=== PATIENT | female | born 1970 | race Caucasian/White ===

== ENCOUNTER 2018-08-07 18:29 | Emergency (ER) | payer BC ==
[~2018-08-07] VITALS: Ht 160 cm; Wt 75.3 kg
[2018-08-07 18:42] VITALS: BP_SYST 141
[2018-08-07] MEDS ORDERED: KETOROLAC TROMETHAMINE 60 MG/2 ML VIAL IM ONE (19:15)
[2018-08-07 19:46] LABS: BILIRUBIN,URINE NEGATIVE (NEGATIVE); CLARITY/URINE CLEAR (CLEAR); COLOR,URINE YELLOW (YELLOW); GLUCOSE,URINE NEGATIVE (NEGATIVE); KETONES,URINE NEGATIVE (NEGATIVE); LEUKOCYTE ESTERASE ,URINE NEGATIVE (NEGATIVE); NITRITE, URINE NEGATIVE (NEGATIVE); PROTEIN URINE NEGATIVE (NEGATIVE); UROBILINOGEN,URINE 0.2 (0.2-1.0)
[2018-08-07 19:47] LABS: BLOOD, URINE TRACE (NEGATIVE)
[2018-08-07 19:58] LABS: BACTERIA,URINE FEW /HPF (None Seen); RBC,URINE 0-3 /HPF (0-3); WBC,URINE 0-3 /HPF (0-3)
[2018-08-07 20:35] VITALS: BP_SYST 136
== END 2018-08-07 20:35 | disposition home or self-care (01) ==
LOC: SED 18:29
DX: M54.41 Lumbago with sciatica, right side (principal); R03.0 Elevated blood-pressure reading, without diagnosis of hypertension; Z90.710 Acquired absence of both cervix and uterus; Z88.0 Allergy status to penicillin
CPT/HCPCS: 81000; 81025; 96372; 99283; J1885

== ENCOUNTER 2020-01-21 07:50 | Emergency (ER) | payer BC ==
[~2020-01-21] VITALS: Ht 154.9 cm; Wt 77.1 kg
[2020-01-21 08:00] VITALS: BP_SYST 130
--- NOTE | 2020-01-21 08:09 | NUR ---
Patient to ER bed 4 to gown for evaluation. Side rails up. Report given to AREN Pierre.
--- NOTE | 2020-01-21 08:18 | NUR ---
ER Dr. MINER at bedside examining patient.
--- NOTE | 2020-01-21 08:20 | NUR ---
PT TO BED 4. ALERT AND ORIENTED. ABLE TO MAKE NEEDS KNOWN. NO ACUTE DISTRESS NOTED. VSS.
--- NOTE | 2020-01-21 08:29 | NUR ---
PT TO ULTRASOUND.
[2020-01-21] MEDS ORDERED: MAG HYDROX/AL HYDROX/SIMETH 30 ML, DICYCLOMINE HCL 20 MG, LIDOCAINE VISCOUS 2% 15ML (PO... PO ONE ×3 (08:30)
[2020-01-21 09:23] LABS: BASOPHILS % (AUTO) 0.5 % (0.0-2.0); EOSINOPHILS % (AUTO) 0.3 % (0.0-4.0); HEMATOCRIT 39.6 % (36-48); HEMOGLOBIN 13.7 g/dL (12.0-16.0); LYMPHOCYTES # (AUTO) 1.2 K/uL (1.0-5.5); LYMPHOCYTES % (AUTO) 12.4 % (20.5-51.5); MEAN CORPUSCULAR HEMOGLOBIN 30 pg (27-31); MEAN CORPUSCULAR HGB CONC 35 % (32-36); MEAN CORPUSCULAR VOLUME 85 fL (79.0-98.0); MONOCYTES # (AUTO) 0.5 K/uL (0.0-1.0); MONOCYTES % (AUTO) 5.2 % (1.7-9.3); NEUTROPHILS # (AUTO) 7.7 K/uL (1.8-7.7); NEUTROPHILS % (AUTO) 81.6 % (40.0-70.0); PLATELET COUNT (AUTO) 302 K/uL (130-430); RED BLOOD CELL COUNT(AUTO) 4.65 MIL/uL (4.2-6.2); RED CELL DISTRIBUTION WIDTH 13.8 % (9.0-15.0); WHITE BLOOD COUNT (AUTO) 9.5 K/uL (4.8-10.8)
[2020-01-21 09:37] LABS: ANION GAP 7 (5-15); CALCIUM 9.6 mg/dL (8.4-11.0); CHLORIDE 103 mmol/L (98-107); CREATININE 0.73 mg/dL (0.55-1.30); GLUCOSE 97 mg/dL (70-99); POTASSIUM 4.2 mmol/L (3.5-5.1); SODIUM SERUM 136 mmol/L (136-145); UREA NITROGEN, BLOOD 14 mg/dL (8-21)
[2020-01-21 09:42] LABS: GFR AFRICAN AMERICAN 110 mL/min (>90)
[2020-01-21 09:46] LABS: ALANINE AMINOTRANSFERASE 44 U/L (12-78); ALBUMIN 4.1 g/dL (3.4-4.8); ASPARTATE AMINOTRANSFERASE 18 U/L (10-37); LIPASE 127 U/L (73-393); TOTAL BILIRUBIN 0.4 mg/dL (0.0-1.0)
[2020-01-21] MEDS ORDERED: KETOROLAC TROMETHAMINE 30 MG VIAL IM ONE (10:00)
[2020-01-21 10:19] VITALS: BP_SYST 127
--- NOTE | 2020-01-21 10:25 | NUR ---
Patient given written and verbal discharge instructions and verbalizes understanding. ER MD discussed with patient the results and treatment provided. Patient in stable condition. ID arm band removed. IV catheter removed intact and dressing applied, no active bleeding. Rx of PROTONIX given. Patient educated on pain management and to follow up with PMD. Pain Scale 3/10. Opportunity for questions provided and answered. Medication side effect fact sheet provided.
== END 2020-01-21 10:19 | disposition home or self-care (01) ==
LOC: SED 07:50
DX: K29.60 Other gastritis without bleeding (principal); R10.13 Epigastric pain; Z88.0 Allergy status to penicillin
CPT/HCPCS: 36415; 76700; 80053; 81002; 81025; 83690; 84484; 85025; 93005; 96372; 99285; J1885; J2001

== ENCOUNTER 2021-06-07 14:02 | Emergency (ER) | payer BC, SELFPAY ==
--- NOTE | 2021-06-07 15:18 | NUR ---
called for triage. no answer
--- NOTE | 2021-06-07 15:22 | NUR ---
LEFT WITHOUT BEING SEEN.
== END 2021-06-07 15:22 | disposition left against medical advice (07) ==
LOC: SED 14:02
DX: R10.9 Unspecified abdominal pain (principal); Z53.21 Procedure and treatment not carried out due to patient leaving prior to being seen by health care provider

== ENCOUNTER 2021-11-23 03:26 | Emergency (ER) | payer BC ==
[~2021-11-23] VITALS: Ht 160 cm; Wt 76.2 kg
[2021-11-23] MEDS ORDERED: LIDOCAINE 1% 10 MG/ML, 20 ML MDV INJ ONE (04:00)
[2021-11-23 05:17] VITALS: BP_SYST 156
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
--- NOTE | 2021-11-23 05:28 | NUR ---
ER Dr.D' Lemus at bedside examining patient.
[2021-11-23] MEDS ORDERED: IBUPROFEN 600 MG TABLET PO ONE (05:30)
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
[2021-11-23] MEDS ORDERED: NAPR-686 PO (06:07)
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
[2021-11-23 07:21] VITALS: BP_SYST 145
--- NOTE | 2021-11-23 07:21 | NUR ---
Patient given written and verbal discharge instructions and verbalizes understanding. ER MD discussed with patient the results and treatment provided. Patient in stable condition. Rx of naproxen sent to pharmacy of choice by ER MD. Patient educated on pain management and to follow up with PMD. Opportunity for questions provided and answered.
== END 2021-11-23 07:21 | disposition home or self-care (01) ==
LOC: SED 03:26
DX: M23.92 Unspecified internal derangement of left knee (principal); Z88.0 Allergy status to penicillin
CPT/HCPCS: 73560-TC; 99284